=== PATIENT | male | born 1985 | race Caucasian/White ===

== ENCOUNTER 2018-02-08 08:39 | Day surgery (SDC) | payer BC ==
[2018-02-08] MEDS ORDERED: LIDOCAINE 1% W/EPI 1:200,000 MPF 30ML SQ ONE (08:40)
[2018-02-08] MEDS ORDERED: DEXAMETHASONE PRESERVATIVE FREE 10MG/ML VIAL IV ONE (08:40)
[2018-02-08] MEDS ORDERED: BUPIVACAINE 0.5% W/EPI MPF 30 ML VIAL IVP ONE (08:40)
--- NOTE | 2018-02-09 20:42 | Operative Note - [place] ---
DATE OF SURGERY: 02/08/18 PREOPERATIVE DIAGNOSIS: CERVICAL SPONDYLOSIS WITHOUT MYELOPATHY, ICD-10 CODE = M47.812. SURGERY: RIGHT-SIDED CERVICAL RHIZOTOMY 3-4, 4-5, 5-6, AND 6-7. SURGEON: LAURA CAMARENA D.O. ANESTHESIA: LOCAL SEDATION. ANESTHESIA PROVIDER: TODD WOOD CRNA INDICATIONS: This patient presents with pain, which is right-sided in the neck and shoulders. Diagnostics showed diffuse and multilevel spondylosis. A previous facet series 75+% pain control. Due to the failure of therapy and the success of the facet series, the patient presents today for rhizotomy for more retirement relief. SURGERY: Intravenous line, vital sign monitoring, IV sedation, prepped, draped , sterile technique. Under imaging, cervical facets to the right in the area of pain at 3-4, 4-5, 5-6, and 6-7 were marked and infiltrated. A #22 gauge rhizotomy cannula positioned, stimulation trials conducted. Rhizotomy burn performed. Local with anti-inflammatory into the site. Topical antibiotic and sterile dressing applied. Will monitor and evaluate. cc: Dr. Kyle Frost JOB NUMBER: [id number] MTDD
== END 2018-02-08 10:56 | disposition home or self-care (01) ==
LOC: SUR 08:39
PROVIDERS: ATTEND Pain Medicine Interventional Pain Medicine
DX: M47.812 Spondylosis without myelopathy or radiculopathy, cervical region (principal); I10 Essential (primary) hypertension; Z94.0 Kidney transplant status
CPT/HCPCS: 64633; 64634 ×3; 01936; J1100